=== PATIENT | male | born 2000 | race Caucasian/White ===

== ENCOUNTER 2024-01-14 19:34 | Emergency (ER) | payer OTHER, SELFPAY ==
--- NOTE | ~2024-01-14 | XR_ITS ---
EXAMINATION: XR CHEST CLINICAL INFORMATION: Cough and wheezing. COMPARISON: None available. TECHNIQUE: Frontal view of the chest was obtained. FINDINGS: No significant abnormality is noted involving the heart, lungs, mediastinum, bony thorax or soft tissues. XR/XR chest 1V IMPRESSION: No active cardiopulmonary disease.
[2024-01-14 19:50] VITALS: BP 114/61; PULSE 94; RESP 18; TEMP 37.7; O2SAT 97; BMI 22.3
--- NOTE | 2024-01-14 20:00 | ED_ITS ---
HPI - General Adult General Chief complaint: Upper Respiratory Symptoms Stated complaint: flu like symptoms Time Seen by Provider: 01/14/24 20:52 Source: patient Mode of arrival: ambulatory Limitations: no limitations History of Present Illness HPI narrative: Patient is a 23-year-old male who presents emergency department for evaluation of rhinorrhea, nasal congestion, sore throat, tactile fever over the past 2 d ays. Admits to ill contacts with similar symptoms at home. Denies chest pain, shortness of breath, difficulty breathing, nausea vomiting, abdominal pain, headache, neck pain or neck stiffness. Related Data Previous Rx's ?Medication ?Instructions ?Recorded loratadine 10 mg tablet (Allergy 10 mg PO DAILY #60 tabs 01/31/21 Relief (loratadine)) albuterol sulfate 90 mcg/actuation 2 puff inhalation Q4-6H PRN 01/14/24 aerosol inhaler shortness of breath or wheezing #6.7 grams Allergies Allergy/AdvReac Type Severity Reaction Status Date / Time No Known Allergies Allergy Verified 01/14/24 19:52 [No Known Allergies*] Review of Systems Review of Systems: Yes all other systems are reviewed and are negative PMFSH Past Medical History Attestation statement: The following information was validated with the patient. Source: old records reviewed Medical History Seasonal allergies Family History Family History (Updated 01/31/21 @ 13:08 by CANDE Woodward) Mother No problems noted. Social History Social History (Updated 01/31/21 @ 13:08 by CANDE Woodward) Household Members: Family Smoked in Last 30 Days: No Use of substances other than those prescribed or required for medical reasons: No Advance Directives: No Advance Directives Information Provided: No Do you have a plan to hurt others: No Plan Physical Exam ED Vital Signs: Vital Signs - 24 hr 01/14/24 19:50 01/14/24 20:39 01/14/24 21:54 Temperature 99.8 F 99.5 F Pulse Rate 94 81 104 H Respiratory Rate 18 18 17 Blood Pressure 114/61 103/56 L Pulse Oximetry 97 99 Oxygen Delivery Method Room Air Room Air 01/15/24 00:15 Temperature 99.5 F Pulse Rate 104 H Respiratory Rate 17 Blood Pressure 103/56 L Pulse Oximetry 99 Oxygen Delivery Method Room Air BMI result Body Mass Index 22.3 Appearance: Alert.?Oriented to person, place and time. No acute distress.?Normal affect. Eyes: Pupils equal, round and reactive to light.? ENT: Pharynx mildly erythematous without exudates. Uvula midline no trismus. No drooling Neck: Normal inspection.? Neck supple.??No cervical adenopathy CVS: Heart sounds normal. Normal heart rate and rhythm.? Pulses normal.?? Respiratory: No respiratory distress.? Lung sounds with expiratory wheezing in the upper lobes bilaterally Abdomen: Soft and non-tender. Normoactive bowel sounds. Skin: Skin warm and dry.? Normal skin color.? ? Extremities: No lower extremity edema.? No calf ttp? Neuro: Moves all extremities spontaneously. Sensation intact bilaterally. Ambulates with normal steady gait. Course Course Course Narrative: RME: Triage done by [facility]. Patient presents to ED for upper respiratory nasal congestion, sinus congestion, fever, sore throat, and coughing. Positive for wheezing on lung exam. Chest x-ray SARs strep and albuterol treatment ordered Medications Administered Discontinued Medications Generic Name Dose Route Start Last Admin Trade Name Freq PRN Reason Stop Dose Admin Albuterol Sulfate 2 puff 01/14/24 23:54 01/15/24 00:08 Albuterol Sulfate 90 Mcg 8 Gm Inhaler INHALE 01/14/24 23:55 2 puff ONCE ONE Administration Albuterol Sulfate 2.5 mg/ 0 mg 01/14/24 20:31 01/14/24 20:38 Albuterol/Ipratropium 3 ml INHALE 01/14/24 20:32 1 dose ONCE ONE Administration Medical Decision Making Medical Decision Making [facility] Narrative: Patient is a 23-year-old male with past medical history of allergic rhinitis presenting for evaluation of upper respiratory symptoms and sore throat. He initially presented with mild expiratory wheezing no reported past medical history of asthma, resolved after albuterol 2.5 mg nebulizer, lung then clear. COVID-19/influenza/RSV testing negative. Strep a testing is negative, pharynx is mildly erythematous, but no evidence of RPA/TAX FORM PREPARER. CXR reveals no acute pathology, no pneumonia.. Well-appearing, nontoxic, afebrile, no tachycardia or tachypnea/hypoxia. Speaking clear full sentences, ambulatory with steady gait. Advised continued use of daily antihistamine, in addition will send prescription for albuterol inhaler to pharmacy, Discussed conservative treatment including rest, hydration, Tylenol/ibuprofen as needed for fever and body aches, saline nasal spray, humidifier, qawn-vav-cakxvon cold medication. Advised to follow-up with primary care provider as needed, discussed reasons to return back to the emergency department. All questions were answered. Patient discharged home in stable condition. Differential Diagnosis Differential Diagnoses: The differential diagnosis associated with the presentation includes ( See narrative above) Admission/Observation Consideration of admission/observation: Escalation of care including admission/observation considered ( see narrative above) Lab Data MDM Lab Attestation statement: I reviewed the patient's lab results. ( see narrative above) Labs: Lab Results 01/14/24 Range/Units 20:24 Influenza Type A (PCR) NEGATIVE (Negative) Influenza Type B (PCR) NEGATIVE (Negative) RSV RNA Qual (PCR) NEGATIVE (Negative) SARS-CoV-2 RNA (RT-PCR) NEGATIVE (Negative) S. pyogenes GrpA LALITO Negative (Negative) Independent Interpretation I performed an independent interpretation of an: Plain X-Ray (No consolidation or infiltrates) Radiology Impression Discussion of test interpretation with radiology: I have reviewed the radiologist's reading. Radiologist Impression: XR/XR chest 1V IMPRESSION: No active cardiopulmonary disease. Independent Historian Clinical information obtained from an independent historian. History obtained from or confirmed by: Spouse Prescription Management I considered prescription management with: Pain Medication ( acetaminophen/ibuprofen) and Antibiotic (Suspect viral/allergic etiology) Discharge Plan Discharge Clinical Impression: Upper respiratory infection Patient Disposition: Home, Self-Care Instructions: Upper Respiratory Infection (ED) Additional Instructions: Be sure to rest, stay well hydrated drinking plenty of fluids, eat small frequent meals. Tylenol/ibuprofen can be used as needed for fever/pain. Laot-oag-hfetuft cold medications may be helpful as well for symptoms. Saline nasal spray, humidifier may be helpful for nasal congestion. You may return to the emergency department with any new or worsening symptoms or concerns. Follow-up with your primary care provider as needed. Should remain out of school/ work until symptoms have resolved and have been without a fever for 24 hours without the use of Tylenol or ibuprofen. Prescription for an albuterol inhaler was sent to your pharmacy, uses as needed for shortness of breath/wheezing Prescriptions: New albuterol sulfate 90 mcg/actuation HFA aerosol inhaler 2 puff inhalation Q4-6H PRN (Reason: shortness of breath or wheezing) Qty: 6.7 0RF No Action loratadine [Allergy Relief (loratadine)] 10 mg tablet 10 mg PO DAILY Qty: 60 1RF Stand Alone Forms: Work/School Release Interventions: ED Discharge Assessment Last Done: 01/15/24 00:15 Discharge Date/Time: 01/15/24 00:15 Print Language: Amharic
[2024-01-14] MEDS: Albuterol Sulfate 2.5 MG, Albuterol/Iprat 2.5/0.5MG 3 ML 3 ML INHALE (20:38)
[2024-01-14 20:39] VITALS: PULSE 81; RESP 18; O2SAT 98
[2024-01-14 20:39] LABS: IDNOW Serial# 08D9AD1C; Strep A Nucleic Acid Negative (Negative)
[2024-01-14 21:14] LABS: Influenza A PCR NEGATIVE (Negative); Influenza B PCR NEGATIVE (Negative); Resp Syncy Virus RNA Qual PCR NEGATIVE (Negative); SARS COV2 PCR INHOUSE NEGATIVE (Negative)
[2024-01-14 21:54] VITALS: BP 103/56; PULSE 104; RESP 17; TEMP 37.5; O2SAT 99
[2024-01-15] MEDS: Albuterol Sulfate 90 MCG 8 GM INHALER 2 PUFF INHALE (00:08)
--- NOTE | 2024-01-15 00:13 | PC.NURSE ---
pt educated on proper use of inhaler. medication administered per provider order.
[2024-01-15 00:15] VITALS: BP 103/56; PULSE 104; RESP 17; TEMP 37.5; O2SAT 99
== END 2024-01-15 00:15 | disposition home or self-care (01) ==
PROVIDERS: Emergency Provider Emergency Medicine
DX: J06.9 Acute upper respiratory infection, unspecified (principal); J02.9 Acute pharyngitis, unspecified; R50.9 Fever, unspecified; R09.81 Nasal congestion; R05.9 Cough, unspecified; Z03.818 Encounter for observation for suspected exposure to other biological agents ruled out
CPT/HCPCS: 0241U; 71045; 87651; 94640; 99284; 99285

== ENCOUNTER 2024-07-29 09:50 | Outpatient (AMB) | payer OTHER, SELFPAY ==
[2024-07-29 09:57] VITALS: BP 112/70; PULSE 69; O2SAT 99; BMI 22.7
--- NOTE | 2024-07-29 09:57 | MHC.OFFWIV ---
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 Patient Tobacco Use Status: Current everyday Tobacco user Allergies No Known Allergies [No Known Allergies*] Allergy (Verified 07/29/24 10:01) Do you need a note to return to daycare/school/sports/work: No HPI HPI Comments History of Present Illness Details The patient is a 23-year-old male presenting with concern of an enlarging mass in the left inguinal region. The patient reported first noticing the bump a couple of days ago in the groin area. Initially small, the mass has since increased in size and exhibits tenderness upon palpation, though it is not associated with significant pain. The patient denied any preceding infections, abdominal symptoms, urinary tract symptoms, or gastrointestinal issues. He has no history of sexually transmitted infections or abnormal discharge, and is currently not sexually active. The patient does not have a primary care physician, and this is the initial assessment for this condition. [facility] Medical History Seasonal allergies Family History (Updated 01/31/21 @ 13:08 by CANDE Woodward) Mother No problems noted. Social History (Updated 01/31/21 @ 13:08 by CANDE Woodward) Household Members: Family Patient Tobacco Use Status: Current everyday Tobacco user Review of Systems Const All systems reviewed & are unremarkable except as noted in HPI and below Physical Exam Vital Signs: Last Vital Signs Pulse 69 07/29/24 09:57 BP 112/70 07/29/24 09:57 Pulse Ox 99 07/29/24 09:57 Oxygen Delivery Method Room Air 07/29/24 09:57 BMI result Body Mass Index 22.7 Const General: cooperative, healthy appearing, comfortable, no acute distress and well developed Orientation/consciousness: patient oriented x3 Limitations: no limitations HEENT Head: Yes normal to inspection Ears: hearing grossly normal bilaterally General nose exam: Normal external nose present Face and sinus: Yes normal facial exam Eyes General: appearance normal, both eyes and all related structures Neck Neck: Yes normal visual inspection and Yes full ROM Resp Effort & Inspection: normal respiratory effort and able to speak in complete sentences Other: Palpable 1cm x 2.5cm mass in the left inguinal region, slightly tender, non-reducible upon attempted manipulation Skin General skin exam: no rashes or lesions noted Neuro General: patient oriented x3 Extrem General: Yes normal to inspection Assessment & Plan Assessment & Plan (1) Lump in the groin: Code(s): R19.09 - Other intra-abdominal and pelvic swelling, mass and lump Plan: Inguinal Hernia versus enlarged Inguinal Lymph Node: The recommendation is for the patient to proceed to the emergency room for further evaluation, including imaging with ultrasound, to confirm the diagnosis and assess for possible emergency surgery due to its non-reducible nature, which could indicate the need for surgical intervention. Or, if this is an enlarged inguinal lymph node vs other. Patient and his mother agreed and they will go to the [facility] emergency department. Called [facility] ED with expect Patient was informed and verbally consented to the use of an ambient scribe for clinic note documentation during this visit. Coding Level of Care Code New Pt Level 5 (56262) Diagnoses Lump in the groin R19.09
== END 2024-07-29 10:33 | disposition home or self-care (01) ==
PROVIDERS: Visit Provider Physician Assistant
DX: R19.09 Other intra-abdominal and pelvic swelling, mass and lump (principal)

== ENCOUNTER → 2024-07-29 09:50 | Outpatient (BNVA) | payer OTHER, SELFPAY | PROVIDERS: Visit Provider Physician Assistant | DX: R19.09 Other intra-abdominal and pelvic swelling, mass and lump (principal) | CPT/HCPCS: 99202 ==

== ENCOUNTER 2024-07-29 10:41 | Emergency (ER) | payer OTHER, SELFPAY ==
--- NOTE | ~2024-07-29 | CT_ITS ---
EXAMINATION: CT ABDOMEN AND PELVIS WITHOUT CONTRAST CLINICAL INFORMATION: Mass in the left groin with question hernia COMPARISON: None available. TECHNIQUE: Multidetector volumetric imaging was performed from the superior aspect of the liver through the pubic symphysis. Sagittal and coronal reformatted images were obtained on the technologist's workstation. This CT examination was performed using dose optimization techniques as appropriate, variously including the following: *Automated exposure control *Adjustment of mA and/or kV according to patient size (this includes techniques or standardized protocols for targeted exams where dose is matched to indication/reason for exam; i.e. extremities or head) *Use of iterative reconstruction technique DLP: 291 mGy-cm FINDINGS: LUNG BASES: The visualized lung bases are unremarkable. LIVER, GALLBLADDER, AND BILIARY TREE: The liver is normal in size, shape, and attenuation. No focal hepatic lesion or biliary ductal dilatation is present. The gallbladder is unremarkable with no evidence of radiopaque gallstones, gallbladder wall thickening, or obvious pericholecystic inflammatory changes. PANCREAS: Unremarkable. SPLEEN: Unremarkable. ADRENAL GLANDS: Unremarkable. KIDNEYS AND URETERS: The kidneys are normal in size, shape, and attenuation. No hydronephrosis, hydroureter, or calculi seen. No perinephric stranding. BLADDER: Unremarkable. GASTROINTESTINAL TRACT: The small and large bowel are unremarkable. The appendix is unremarkable. ABDOMINAL WALL: No significant hernia is appreciated. LYMPH NODES: There is a pear-shaped mass in the left inguinal area measuring 3.8 x 2.2 x 2.0 cm which is likely a lymph node. Some other bilateral smaller inguinal lymph nodes are seen, left greater than right. No retroperitoneal lymphadenopathy seen. VASCULAR: Unremarkable. PELVIC VISCERA: Prostate not well visualized secondary to lack of surrounding fat. OSSEOUS STRUCTURES: Unremarkable. CT/CT abdomen pelvis wo IV con IMPRESSION: Left inguinal mass is likely a lymph node. Ultrasound would be useful for further evaluation to assess the presence of a fatty eufemia. If findings are persistent, and not felt to be inflammatory, ultrasound-guided biopsy could always be performed for further evaluation. Fleischner guidelines were followed. Electronically signed by: Felipe Bundy MD 07/29/2024 08:51 PM [facility]
[2024-07-29 10:52] VITALS: BP 118/38; PULSE 65; RESP 14; TEMP 37.3; O2SAT 97; BMI 20.3
[2024-07-29 17:52] VITALS: BP 111/66; PULSE 62; RESP 16; TEMP 36.8; O2SAT 98
--- NOTE | 2024-07-29 18:07 | ED_ITS ---
HPI - General Adult General Chief complaint: General Medical Stated complaint: Lump groin area Time Seen by Provider: 07/29/24 18:07 Source: patient and family (mom) Mode of arrival: ambulatory Limitations: no limitations History of Present Illness ED Provider: DONAL OSUNA PA-C HPI narrative: 23-year-old male with no significant pmhx presents to the ED today for evaluation mass to left groin area x2 days. He initially noticed a lump 2 days ago however it has been increasing in size. Reports being evaluated at urgent care today. He states that he was sent here for further evaluation for question hernia versus lymph node. He denies any pain surrounding of the mass. The mass is not tender and does not seem to bulge with straining or coughing. Denies any penile discharge or lesions. Denies testicular or abdominal pain. Denies dysuria, hematuria. He states that he is not sexually active. Does not have concern for sexually transmitted infections. Related Data Previous Rx's ?Medication ?Instructions ?Recorded loratadine 10 mg tablet (Allergy 10 mg PO DAILY #60 tabs 01/31/21 Relief (loratadine)) albuterol sulfate 90 mcg/actuation 2 puff inhalation Q4-6H PRN 01/14/24 aerosol inhaler shortness of breath or wheezing #6.7 grams Allergies Allergy/AdvReac Type Severity Reaction Status Date / Time No Known Allergies Allergy Verified 07/29/24 10:53 [No Known Allergies*] Review of Systems Review of Systems: Constitutional: No fever, chills, fatigue, night sweats, weight changes ENT/Mouth: No ear pain, hearing loss, nasal congestion, sinus pain, rhinorrhea, sore throat Eyes: No eye pain, swelling, redness, vision changes, discharge Cardio: No chest pain, palpitations, FRIAS, orthopnea, peripheral edema Pulm: No SOB, cough, sputum, wheezing, dyspnea, hemoptysis GI: No nausea, vomiting, hematemesis, abdominal pain, diarrhea, constipation, hematochezia, melena : No irregular bleeding, dysuria, frequency, urgency, hesitancy, hematuria, flank pain, urinary flow changes, urinary incontinence or retention, +mass to L groin MSK: No back pain, neck pain, joint pain, myalgias Skin: No lesions, rashes Neuro: No weakness, numbness, paresthesias, LOC, dizziness, headache Psych: No anxiety/panic, depression, SI/HI, AH/VH All other systems reviewed and are negative [facility] Past Medical History Attestation statement: The following information was validated with the patient. Source: old records reviewed and nursing notes reviewed Medical History Seasonal allergies Family History Family History Mother No problems noted. Social History Social History Household Members: Family Patient Tobacco Use Status: Current everyday Tobacco user Advance Directives: No Advance Directives Information Provided: Yes Physical Exam ED Vital Signs: Vital Signs - 24 hr 07/29/24 17:52 07/29/24 21:42 Temperature 98.3 F 98.3 F Pulse Rate 62 62 Respiratory Rate 16 16 Blood Pressure 111/66 111/66 Pulse Oximetry 98 98 Oxygen Delivery Method Room Air Room Air BMI result Body Mass Index 20.3 Vital signs stable General: Well appearing, in no acute distress. Skin: Warm, dry, intact. No rashes or lesions. Head: Normocephalic, atraumatic. EENT: Hearing is intact b/l. Conjunctiva clear. PERRLA. EOM intact. Moist mucous membranes.? Cardiac: Chest wall symmetric. RRR Abdomen: Soft, non-tender, non-distended. No rebound tenderness or guarding. Positive BS x4. no palpable hernia. : External genitalia normal. No penile lesions. No penile discharge. Testicles with normal lie. Nontender. No overlying erythema or swelling. small, palpable left inguinal mass, mobile, nontender. Back: No midline spinous or paraspinal tenderness. No step off deformity. Neuro: AOx3. Normal speech. Ambulating with steady gait. Psych: Appropriate mood and affect. Responds appropriately to questions. Course Course Course Narrative: 2127 -- urine without infection. CT NG pending. CT abdomen/pelvis showing a pear shaped mass in the left inguinal area measuring 3.8 x 2.2 x 2 cm which is likely a lymph node with some other bilateral smaller inguinal lymph nodes, left greater than right. He adamantly denies being sexually active and states that he does not have sex with men. I am not concerned for syphilis at this time and patient does not wish to be tested today. It is unclear where this lymphadenopathy is coming from. He does not endorse pain. Advised to follow-up with a primary care provider this week. I also advised him to follow up with [facility] for further STD testing if he wishes to do so. Patient has remained stable throughout ED visit today. Discussed worrisome signs and symptoms and when to return to the ED. All questions answered at this time. Patient is agreeable with disposition and stable for discharge. Medical Decision Making Medical Decision Making [facility] Narrative: 23-year-old male with no significant pmhx presents to the ED today for evaluation mass to left groin area x2 days. vitals stable. afebrile. he is nontoxic appearing and in NAD. he is lying comfortably on the exam bed. abd soft, ND/NT, no rebound/ guarding. normoactive bs x4. External genitalia normal. No penile lesions. No penile discharge. Testicles with normal lie. Nontender. No overlying erythema or swelling. small, palpable left inguinal mass, mobile, nontender. Differential diagnosis includes lymphadenopathy, STD, UTI plan for UA, CTNG, CT a/p, re-evaluation Differential Diagnosis Differential Diagnoses: The differential diagnosis associated with the presentation includes As above Admission/Observation Not indicated Lab Data [facility] Lab Attestation statement: I reviewed the patient's lab results. As above Labs: Lab Results 07/29/24 Range/Units 20:03 Urine Color Yellow Urine Appearance Clear Urine pH 6.5 (5.0-9.0) Ur Specific [place] 1.025 (1.005-1.025) Urine Protein Negative (Neg-Trace) mg/dL Urine Glucose (UA) Negative (Negative) mg/dL Urine Ketones Negative (Negative) mg/dL Urine Blood Negative (Negative) Urine Nitrite Negative (Negative) Ur Leukocyte Esterase Negative (Negative) Chlam trachomat DNA PCR NOT DETECTED (Not Detect.) N.gonorrhoeae DNA (PCR) NOT DETECTED (Not Detect.) Independent Interpretation I performed an independent interpretation of an: CT Scan Interpretation: CT abdomen/pelvis showing left inguinal lymphadenopathy Radiology Impression Discussion of test interpretation with radiology: I have reviewed the radiologist's reading. Radiologist Impression: CT ABDOMEN AND PELVIS WITHOUT CONTRAST CLINICAL INFORMATION: Mass in the left groin with question hernia COMPARISON: None available. TECHNIQUE: Multidetector volumetric imaging was performed from the superior aspect of the liver through the pubic symphysis. Sagittal and coronal reformatted images were obtained on the technologist's workstation. This CT examination was performed using dose optimization techniques as appropriate, variously including the following: *Automated exposure control *Adjustment of mA and/or kV according to patient size (this includes techniques or standardized protocols for targeted exams where dose is matched to indication/reason for exam; i.e. extremities or head) *Use of iterative reconstruction technique DLP: 291 mGy-cm FINDINGS: LUNG BASES: The visualized lung bases are unremarkable. LIVER, GALLBLADDER, AND BILIARY TREE: The liver is normal in size, shape, and attenuation. No focal hepatic lesion or biliary ductal dilatation is present. The gallbladder is unremarkable with no evidence of radiopaque gallstones, gallbladder wall thickening, or obvious pericholecystic inflammatory changes. PANCREAS: Unremarkable. SPLEEN: Unremarkable. ADRENAL GLANDS: Unremarkable. KIDNEYS AND URETERS: The kidneys are normal in size, shape, and attenuation. No hydronephrosis, hydroureter, or calculi seen. No perinephric stranding. BLADDER: Unremarkable. GASTROINTESTINAL TRACT: The small and large bowel are unremarkable. The appendix is unremarkable. ABDOMINAL WALL: No significant hernia is appreciated. LYMPH NODES: There is a pear-shaped mass in the left inguinal area measuring 3.8 x 2.2 x 2.0 cm which is likely a lymph node. Some other bilateral smaller inguinal lymph nodes are seen, left greater than right. No retroperitoneal lymphadenopathy seen. VASCULAR: Unremarkable. PELVIC VISCERA: Prostate not well visualized secondary to lack of surrounding fat. OSSEOUS STRUCTURES: Unremarkable. CT/CT abdomen pelvis wo IV con IMPRESSION: Left inguinal mass is likely a lymph node. Ultrasound would be useful for further evaluation to assess the presence of a fatty eufemia. If findings are persistent, and not felt to be inflammatory, ultrasound-guided biopsy could always be performed for further evaluation. Fleischner guidelines were followed. Electronically signed by: Felipe Gilbert Histormichael Clinical information obtained from an independent historian. History obtained from or confirmed by: Parent (mom) Social Determinants Patient?s care significantly limited by Social Determinants of Health including: Other Social Determinant of Health Critical Care Time Critical Care Time Critical Care Time: No Discharge Plan Discharge Clinical Impression: Inguinal lymphadenopathy Patient Disposition: Home, Self-Care Instructions: Lymphadenopathy (ED) Additional Instructions: Your physical exam is consistent with a lymph node. The CT scan of your abdomen shows findings most consistent with a lymph node.. Your urine is negative for infection. Your urine has been sent to check for gonorrhea and chlamydia. You will be contacted with any positive results. I also advise you to obtain full panel STD testing to test for other STDs including HIV, Hepatitis B&C, and syphilis which can be done by your PCP or at a local clinic. [facility] can help facilitate these tests. They often have walk-in hours. [facility] Clinic: [address] [place] [address] [address], [place] [id number] [phone] Please follow up with your primary care provider. If you do not have a PCP, a referral has been provided to you. Return with new or worsening symptoms. In the case of an emergency call 911. Prescriptions: No Action albuterol sulfate 90 mcg/actuation HFA aerosol inhaler 2 puff inhalation Q4-6H PRN (Reason: shortness of breath or wheezing) Qty: 6.7 0RF loratadine [Allergy Relief (loratadine)] 10 mg tablet 10 mg PO DAILY Qty: 60 1RF Interventions: ED Discharge Assessment Last Done: 07/29/24 21:42 Discharge Date/Time: 07/29/24 21:43 Print Language: Italian
[2024-07-29 20:12] LABS: Appearance Urine Clear; Color Urine Yellow; Glucose Urine UA Negative (Negative); Leukocyte Esterase Urine Negative (Negative); Nitrite Urine Negative (Negative); PH 6.5 (5.0-9.0); Specific Gravity - Urine 1.025 (1.005-1.025); Urine Blood Negative (Negative); Urine Ketones Negative (Negative); Urine Protein Negative (Neg-Trace)
[2024-07-29 21:42] VITALS: BP 111/66; PULSE 62; RESP 16; TEMP 36.8; O2SAT 98
[2024-07-30 01:55] LABS: CT PCR NOT DETECTED (Not Detect.); NG PCR NOT DETECTED (Not Detect.)
== END 2024-07-29 21:43 | disposition home or self-care (01) ==
PROVIDERS: Physician Assistant Medical; Emergency Provider Emergency Medicine
DX: R59.1 Generalized enlarged lymph nodes (principal); R19.09 Other intra-abdominal and pelvic swelling, mass and lump
CPT/HCPCS: 74176; 81003; 87491; 87591; 99283; 99284